=== PATIENT | female | born 2000 | race Two or more races ===

== ENCOUNTER → 2021-03-05 | Outpatient (CLI) | payer OTHER ==
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
== END ==
LOC: RAD 14:28
PROVIDERS: ATTEND Nurse Practitioner Family
DX: M25.562 Pain in left knee (principal)
CPT/HCPCS: 73562